=== PATIENT | male | born 1950 | race Caucasian/White ===

== ENCOUNTER 2024-01-08 09:44 | Day surgery (SDC) | payer MEDICARE, OTHER, SELFPAY ==
[2024-01-07 08:25] VITALS: BMI 29.4
[2024-01-08] VITALS (7 sets, daily range): BP systolic 86–124; BP diastolic 44–73; PULSE 66–79; RESP 10–16; TEMP 36.2–36.4; O2SAT 94–99; BMI 29.1
[2024-01-08] MEDS: ACETAMINOPHEN 325 MG TABLET 975 MG PO (10:50)
--- NOTE | 2024-01-08 11:05 | SUR.OPER ---
Supine on padded OR bed, head on pillow, arms secured on padded arm boards at <90 degrees abduction, legs uncrossed, safety belt at thigh, tape over blanket over lower legs.
--- NOTE | 2024-01-08 11:08 | PM.PREOP ---
Pre-operative Note Interval Note History & Physical reviewed/Exam performed by Physician: Yes Changes to H&P: No
[2024-01-08] MEDS: CEFAZOLIN 2 GM/100 ML PREMIX 100 ML IV (11:20)
[2024-01-08] MEDS: BUPIVACAINE 0.5% W/ EPI (PF) 30 ML VIAL INJ (12:39)
--- NOTE | 2024-01-08 13:01 | PM.OP.1 ---
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 No sign of any significant arthritic changes between the lunate and the radius. Closure Type: primary Applied: implant(s) (TriMed 4 corner fusion plate with 10 locking screws.) Tourniquet time (min): 75 Procedure in detail: On date of service, patient was met in the holding area where his operative site was signed and witnessed by the OR staff. The surgery is once again discussed with the patient in remaining questions or concerns he had were answered fully. Patient was taken back to the operating theater and placed on the operating table in a supine position. Great care was taken to ensure that all bony prominences were appropriately padded. A well-padded tourniquet was placed up along the upper extremity. Time-out was performed verifying patient's name, procedure, and operative site. The left limb was prepped and draped in the normal sterile fashion. An Esmarch was used to exsanguinate the limb the tourniquet was turned up to 250 mm of mercury. Longitudinal incision was made. The incision was ulnar to the Nisha's tubercle. It was centered over the radiocarpal joint. Fifteen blade was used to incise through skin and fascial tissue. Sharp dissection was continued with a 15 blade until the extensor mechanism was identified. Branches of the superficial radial nerve were identified and protected as well as branches coming off ulnarly. Once we had the extensor mechanism identified and was split allowing a release of the EPL tendon. This was also done ulnarly opening up 4th extensor compartment and then done radially opening up the 2nd extensor compartment. This allowed us to retract the extensor tendons. Next, the radiocarpal joint was opened Given his good visualization of the carpus. Findings listed above. Using an osteotome, scaphoid was split and then removed into 2 large pieces. Her insurance scaphoid was then used to remove the tip of the radial styloid to perform a radial styloidectomy. The interval between the lunate in the triquetrum was opened as well as the interval between the capitate and the hamate. The lunate was reduced in a more anatomic position and pinned to the radius. Next a bur was then used to remove any remaining cartilage or sclerotic bone getting down to good healthy bleeding bone. This was done for the articulation between the lunate and the capitate as well as the triquetrum and the hamate. This was also done between the hamate and the capitate as well as between the lunate and the triquetrum. Copious irrigation was performed throughout burring. Once we felt we had good exposed bony tissue, the 4 bones were pinned together for provisional fixation of our 4 corner fusion. Next a Reamer was then used to ream out a circular space for the plate. This provided us good bony graft after the reaming. This was saved for later use. The 18 mm plate was placed and held provisionally with K-wires. Reduction of the 4 carpal bones as well as plate placement was identified on C-arm. Once we were satisfied with the overall reduction and position of the plate, the holes were drilled and locking screws were placed. All the holes were used providing at least 2 screws in to each of the 4 bones. Final K-wire was removed and the wrist was taken through range of motion. No sign of any motion between the 4 bones. Signs of good solid fixation of the 4 corner fusion. Next, the area was copiously irrigated before placing of the bone graft. the previous bone graft was then packed into the different intervals as well as on top of the plate. The dorsal capsule was repaired back into place using 2 0 Ethibond. The extensor retinaculum was then repaired with 3-0 Vicryl recreating the 2nd 3rd 4th and 5th compartments. The skin was then closed with nylon. The hand was cleaned, dried, and dressed. Final C-arm views were obtained. Patient was placed into a splint and taken to the PACU in stable condition. Complications: none Post-operative Condition: stable Disposition: PACU Plan for aftercare: Patient will follow our postoperative protocol for a 4 corner fusion. Patient will be immobilized for a total of 6 weeks and then will get transitioned into a removable brace.
[2024-01-08] MEDS: SODIUM CHLORIDE 0.9% 1,000 ML 84 ML IV (13:27)
[2024-01-08] MEDS: OXYCODONE IR 5 MG TABLET PO (13:34)
== END 2024-01-08 13:54 | disposition home or self-care (01) ==
PROVIDERS: PCP Family Medicine; Referring Provider Orthopaedic Surgery; Visit Provider Orthopaedic Surgery
PROC: (CPT 25825; principal; 2024-01-08 11:45)
DX: M19.032 Primary osteoarthritis, left wrist (principal)
CPT/HCPCS: 25825; C1713; J0690; J1100; J2405; J2704; J3010